=== PATIENT | female | born 1940 | race Caucasian/White ===

== ENCOUNTER 2017-04-16 19:25 | Inpatient (IN) | payer MEDICARE ==
[~2017-04-16] VITALS: Ht 162.6 cm; Wt 62.3 kg
== END 2017-04-19 15:35 | disposition home or self-care (01) | DRG 194 ==
LOC: ER 19:25 → MED 22:02
PROVIDERS: ADMIT Internal Medicine
DX: J18.9 Pneumonia, unspecified organism (principal); N17.9 Acute kidney failure, unspecified; E87.1 Hypo-osmolality and hyponatremia; B44.9 Aspergillosis, unspecified; E86.0 Dehydration; M06.9 Rheumatoid arthritis, unspecified; Z79.899 Other long term (current) drug therapy; I10 Essential (primary) hypertension; E89.0 Postprocedural hypothyroidism; Z90.710 Acquired absence of both cervix and uterus
CPT/HCPCS: 36415; 87486; 87502; 87581; 87633; 87798; J0456; J0696; J1650; J3370; J7050

== ENCOUNTER 2017-04-16 19:25 | Emergency (ER) | payer MEDICARE | END 2017-04-16 22:01 | disposition critical access hospital (66) | LOC: ER 19:25 | DX: N17.9 Acute kidney failure, unspecified (principal); J18.9 Pneumonia, unspecified organism; D72.829 Elevated white blood cell count, unspecified; R53.1 Weakness; I10 Essential (primary) hypertension; E89.0 Postprocedural hypothyroidism; Z79.899 Other long term (current) drug therapy | CPT/HCPCS: 36415; 87502; 87633; 96365; 96366; 96367; 96375; 96376; J0456; J0696 ==